=== PATIENT | male | born 1945 | race Caucasian/White ===

== ENCOUNTER 2020-03-06 10:33 | Outpatient (CLI) | payer MEDICARE, OTHER, SELFPAY ==
--- NOTE | 2020-03-06 10:54 | MR_ITS ---
WS: [id number] MRI HEAD WITH CONTRAST WITH ATTENTION TO THE INTERNAL AUDITORY CANALS TECHNIQUE: Sagittal T1, T2 axial, T2 axial flair, axial susceptibility weighted imaging, axial diffus ion weighted images, and coronal T2 images were obtained. Pre and post T1 axial and post T1 coronal i mages. ADC and FSPGR images. Post gadolinium images with attention to the internal auditory canals. A xial fiesta imaging. CLINICAL INFORMATION: BILATERAL SENSORINEURAL HEARING LOSS/ TINNITUS COMPARISON: None. FINDINGS: No evidence of restricted diffusion to suggest acute ischemia. Ventricular system and basal cisterns are patent. Mild small vessel changes with moderate parenchymal volume loss. Normal posterior fossa. Normal vascular flow voids at the skull base. No extra-axial fluid collections. No evidence of mass o r mass effect. Mild mucosal thickening in the ethmoid air cells. Mild mucosal thickening in the masto id air cells. No hemosiderin on susceptibly weighted images. Proximal 7th and 8th cranial nerves are normal. Normal trigeminal nerve root entry zones. Moderate symmetric atrophy involving the temporal lobes and hippo campal formations. No evidence of enhancing IAC or CP angle mass. No abnormal intracranial enhancemen t. Normal dural venous sinuses. Normal optic chiasm and pituitary infundibulum. Normal cavernous sinu ses and Meckel's cave. MR/MR iac's wo/w con* [id number] IMPRESSION: 1. No evidence of restricted diffusion to suggest acute ischemia. 2. Mild small vessel changes with moderate parenchymal volume loss. 3. Small vessel changes in the radha. 4. No evidence of enhancing IAC or CP angle mass. Normal trigeminal nerve root entry zones. 5. Paranasal sinuses and mastoid air cells are well aerated. 6. No abnormal intracranial enhancement.
== END 2020-03-06 10:34 | disposition home or self-care (01) ==
LOC: RADWPI 10:43
PROVIDERS: Visit Provider Specialist
DX: H90.3 Sensorineural hearing loss, bilateral (principal); H93.13 Tinnitus, bilateral
CPT/HCPCS: 70553; A9579

== ENCOUNTER 2020-07-16 11:28 | Outpatient (CLI) | payer MEDICARE, OTHER, SELFPAY ==
--- NOTE | 2020-07-16 11:35 | CT_ITS ---
WS: [id number] LDCT LUNG CANCER SCREENING HISTORY: HX OF TOBACCO USE TECHNIQUE: Axial imaging performed from the apices to 1 cm below the costophrenic angles. Coronal and sagittal reformats are submitted with axial MIP series. All CT scans at [facility] use at least one of these dose optimization techniques: automated exposure control; mA and/or kV adjustment per patient size (includes targeted exams where dose is matched to clinical indication); or iterativ e reconstruction. DLP: 51.22 mGy.cm DIvol: 1.58 mGy COMPARISON: None available. Diagnostic quality: Satisfactory Lung Nodules: RIGHT upper lobe 3 mm slightly irregular nodule, image 32 series 3. Benign granuloma RI GHT upper lobe. Lungs: Subsegmental linear atelectasis at the LEFT lung base. Heart: Normal size heart. Moderate to severe calcified coronary artery atherosclerosis. Other findings: Moderate atherosclerosis aorta with no dilatation. Normal size pulmonary artery. Smal l hiatal hernia. Mild thoracic spondylosis. CT/CT lung screening [id number] IMPRESSION: LUNG-RADS: 1S-Negative with Significant Findings FOLLOW UP: 12 Month: Continue annual screening with LDCT OTHER FINDINGS (S MODIFIER): Moderate to severe coronary artery atherosclerosis .
== END 2020-07-16 11:29 | disposition home or self-care (01) ==
LOC: CT 11:28
PROVIDERS: PCP Nurse Practitioner Family; Visit Provider Nurse Practitioner Family
DX: Z87.891 Personal history of nicotine dependence (principal); Z12.2 Encounter for screening for malignant neoplasm of respiratory organs; I25.10 Atherosclerotic heart disease of native coronary artery without angina pectoris
CPT/HCPCS: 71271

== ENCOUNTER 2023-09-07 10:14 | Outpatient (CLI) | payer MEDICARE, OTHER, SELFPAY ==
--- NOTE | 2023-09-07 10:21 | CT_ITS ---
WS: [id number] CT chest wo con [id number] HISTORY: SOLITARY PULMONARY NODULE TECHNIQUE: Axial imaging performed through the thorax. Coronal and sagittal reformats are submitted. All CT scans at [facility] use at least one of these dose optimization techniques: automated exposure control; mA and/or kV adjustment per patient size (includes targeted exams where dose is mat ched to clinical indication); or iterative reconstruction. CONTRAST: None DLP: 373.35 mGy.cm COMPARISON: 07/16/2020 Lungs and central airway: Mild hyperexpansion and chronic emphysema. No change in the 3 mm subpleural nodule at the RIGHT apex. No new mass or pulmonary nodule. No pneumonia. Pleura: Normal. No pleural effusion. Heart and pericardium: Normal size heart with no pericardial effusion. Mediastinum and caitlin: No mediastinum or hilar adenopathy. Vessels: Moderate atherosclerotic plaque thoracic aorta. Normal size pulmonary artery. Moderate coron ramo artery calcification. Chest wall and lower neck: No soft tissue masses. Upper abdomen: 10 mm RIGHT adrenal adenoma. Normal LEFT adrenal gland. Osseous structures: Mild increase in thoracic kyphosis. CT/CT chest wo con [id number] IMPRESSION: 1. No interval change in the 3 mm subpleural RIGHT upper lobe pulmonary nodule . No new mass or suspicious masses. 2. Mild emphysema. 3. Moderate atherosclerosis aorta and coronary artery calcifications. 4. Benign RIGHT adrenal adenoma.
== END 2023-09-07 10:15 | disposition home or self-care (01) ==
LOC: RAD 10:15
PROVIDERS: PCP Nurse Practitioner Family; Visit Provider Nurse Practitioner Family
DX: R91.1 Solitary pulmonary nodule (principal); J43.8 Other emphysema; I25.84 Coronary atherosclerosis due to calcified coronary lesion; D35.01 Benign neoplasm of right adrenal gland; M40.294 Other kyphosis, thoracic region; J98.4 Other disorders of lung
CPT/HCPCS: 71250